=== PATIENT | male | born 2000 | race Caucasian/White ===

== ENCOUNTER 2022-06-12 19:32 | Emergency (ER) | payer OTHER, SELFPAY ==
--- NOTE | ~2022-06-12 | XR_ITS ---
EXAMINATION: 1. Right foot 2. Right ankle. CLINICAL INFORMATION: Fall. Pain. COMPARISON: None. TECHNIQUE: 1. Right foot. 3 views 2. Right ankle. 3 views FINDINGS: 1. Right foot. No fracture. No dislocation. Bone and joint are normal. 2. Right ankle. Soft tissue swelling at lateral malleolus. No fracture. No dislocation. Ankle mortise is congruent. XR/XR ankle RT 2V IMPRESSION: 1. Right foot. Normal right foot. 2. Right ankle. Soft tissue swelling at lateral malleolus. No acute osseous abnormality.
--- NOTE | ~2022-06-12 | XR_ITS ---
EXAMINATION: 1. Right foot 2. Right ankle. CLINICAL INFORMATION: Fall. Pain. COMPARISON: None. TECHNIQUE: 1. Right foot. 3 views 2. Right ankle. 3 views FINDINGS: 1. Right foot. No fracture. No dislocation. Bone and joint are normal. 2. Right ankle. Soft tissue swelling at lateral malleolus. No fracture. No dislocation. Ankle mortise is congruent. XR/XR foot RT min 3V IMPRESSION: 1. Right foot. Normal right foot. 2. Right ankle. Soft tissue swelling at lateral malleolus. No acute osseous abnormality.
--- NOTE | 2022-06-12 19:38 | ED.FALL ---
HPI - Fall General Chief Complaint: Extremity Injury, Lower <FLAVIA Jeff - Last Filed: 06/12/22 20:14> Stated Complaint: R ANKLE PAIN <FLAVIA Jeff - Last Filed: 06/12/22 20:14> Time Seen by Provider: 06/12/22 20:23 <FLAVIA Jeff - Last Filed: 06/12/22 20:14> Source: patient and EMS <Beti Nolan MD - Last Filed: 06/12/22 21:03> Mode of arrival: EMS <Beti Nolan MD - Last Filed: 06/12/22 21:03> Limitations: no limitations <Beti Nolan MD - Last Filed: 06/12/22 21:03> History of Present Illness HPI Narrative: 21-year-old male fell off the ladder about 4 ft high while he was working, patient fell off the ladder twisting his right ankle causing severe pain to the right ankle, patient is sustaining swelling and pain in right ankle, unable to bear weight on right ankle/foot. <Beti Nolan MD - Last Filed: 06/12/22 21:03> Related Data Allergies/Adverse Reactions: Allergies Allergy/AdvReac Type Severity Reaction Status Date / Time No Known Allergies Allergy Verified 06/12/22 19:58 <FLAVIA Jeff - Last Filed: 06/12/22 20:14> Review of Systems Review of Systems: All other systems are reviewed and are negative Constitutional: Reports as per HPI and Reports no additional constitutional complaints Eyes: Reports as per HPI and Reports no additional eye complaints Reports system reviewed and no additional complaints, except as documented Cardiovascular: Reports as per HPI and Reports no additional cardiovascular complaints Respiratory: Reports as per HPI and Reports no additional respiratory complaints Gastrointestinal: Reports as per HPI and Reports no additional gastrointestinal complaints Genitourinary: Reports no additional female genitourinary complaints Musculoskeletal: Reports no additional musculoskeletal complaints Skin/Breast: Reports system reviewed and no additional complaints, except as docu Psychiatric: Reports no additional psychiatric complaints Endocrine: Reports no additional endocrine complaints Hematologic/Lymphatic: Reports no additional hematologic/lymphatic complaints Allergic/Immunologic: Reports no additional allergic/immunologic complaints Reports system reviewed and no additional complaints, except as documented and Reports Abnormal speech present <Beti Nolan MD - Last Filed: 06/12/22 21:03> Physical Exam Vital Signs: Vital Signs: Last Vital Signs Temp 98.2 F 06/12/22 20:05 Pulse 98 06/12/22 20:05 Resp 16 06/12/22 20:05 BP 134/71 06/12/22 20:05 Pulse Ox 98 06/12/22 20:05 O2 Del Method 06/12/22 20:05 BMI result Body Mass Index 34.9 <FLAVIA Jeff - Last Filed: 06/12/22 20:14> Vital Signs: Last Vital Signs Temp 98.2 F 06/12/22 20:05 Pulse 98 06/12/22 20:05 Resp 16 06/12/22 20:05 BP 134/71 06/12/22 20:05 Pulse Ox 98 06/12/22 20:05 O2 Del Method 06/12/22 20:05 BMI result Body Mass Index 34.9 Vital signs have been reviewed as appeared to be correct. Blood pressure normal. Heart rate normal. Respiration rate normal. Temperature normal. Oxygen saturation normal. <Beti Nolan MD - Last Filed: 06/12/22 21:03> Appearance: Alert. Oriented X3. No acute distress. Head: Normal external exam. Normocephalic. Atraumatic. No Cano signs noted. No raccoon eyes noted Eyes: PERRLA. EOMI. Conjunctiva and sclera normal. Eyelids normal. ENT: TM's Normal. Pharynx normal. Uvula midline. Moist mucous membranes. No trismus noted. No drooling noted. No muffled voice noted. Neck: Normal inspection. Neck supple. FROM. No adenopathy. Thyroid Normal. No meningeal signs. No neck mass noted. CVS: Normal heart rate and rhythm. Heart sound normal. No murmurs noted. Pulses normal throughout. Respiratory: No respiratory distress. Painless inspiration. Breath sounds normal. No wheezes/rales/rhonchi noted. Chest nontender. No accessory muscle usage noted or decreased air movement noted. Abdomen: Soft and nontender. Bowel sounds normal in all 4 quadrants. No distention noted. No organomegaly noted. No visible injury noted. Back: No CVA tenderness. Full range of motion noted. Skin: Skin warm and dry. Normal skin color. Normal skin turgor. No rashes/lesions/lacerations noted. Extremities: Right ankle exam: Swelling over lateral malleolus, no deformity, tenderness to palpation, unable to bear weight, full range of motion of the right ankle, neurovascularly intact. Neuro: Oriented X 3. Cranial nerve exam: II-XII are grossly intact No motor deficit. No sensory deficit. Reflexes normal. <Beti Nolan MD - Last Filed: 06/12/22 21:03> Course Course Course Narrative: RME-- 21yo M w/no sig PMHx presenting to the ED c/o R ankle pain s/p falling off 4ft ladder while at work [employer], denies head trauma or LOC +deformity with swelling & diffuse ttp. NV intact XR ordered <FLAVIA Jeff - Last Filed: 06/12/22 20:14> Medical Decision Making Differential Diagnosis Differential Diagnoses: The differential diagnosis associated with the presentation includes (Right ankle fracture, right ankle dislocation, right ankle contusion, right ankle sprain, right foot fracture.) <Beti Nolan MD - Last Filed: 06/12/22 21:03> Independent Interpretation I performed an independent interpretation of an: Plain X-Ray (Right foot/ankle x-ray: Soft tissue swelling of lateral malleolus with no acute fracture or subluxation.) <Beti Nolan MD - Last Filed: 06/12/22 21:03> Radiology Impression Discussion of test interpretation with radiology: I have reviewed the radiologist's reading. <Beti Nolan MD - Last Filed: 06/12/22 21:03> Discharge Plan Discharge Clinical Impression: Ankle sprain and strain <FLAVIA Jeff - Last Filed: 06/12/22 20:14> Patient Disposition: Home, Self-Care <FLAVIA Jeff - Last Filed: 06/12/22 20:14> Instructions: Ankle Sprain (ED) <FLAVIA Jeff - Last Filed: 06/12/22 20:14> Additional Instructions: Apply ice to the right ankle, take ibuprofen 200 mg tablet [id number] every 6 hours if needed for pain. Use the crutches with no bearing weight on right ankle. <FLAVIA Jeff - Last Filed: 06/12/22 20:14> Referrals: Tahir Doll MD [Physician] - <FLAVIA Jeff - Last Filed: 06/12/22 20:14> Stand Alone Forms: Work/School Release <FLAVIA Jeff - Last Filed: 06/12/22 20:14>
[2022-06-12 20:05] VITALS: BP 134/71; PULSE 98; RESP 16; TEMP 36.8; O2SAT 98; BMI 34.9
[2022-06-12] MEDS: Ibuprofen 600 MG TABLET PO (21:03)
--- NOTE | 2022-06-12 21:48 | PC.NURSE ---
ANGEL mirza and this RN placed splint on pt. and this RN provided crutches training. Pt. amublating on crutches with slow, steady gait at d/c.
== END 2022-06-12 21:50 | disposition home or self-care (01) ==
LOC: HO.ED 21:12
PROVIDERS: Emergency Provider Emergency Medicine
DX: S93.401A Sprain of unspecified ligament of right ankle, initial encounter (principal); M79.671 Pain in right foot; W11.XXXA Fall on and from ladder, initial encounter; Y93.9 Activity, unspecified; Y92.9 Unspecified place or not applicable; Y99.0 Civilian activity done for income or pay
CPT/HCPCS: 29515; 73600; 73630; 99283; 99284

== ENCOUNTER → 2022-06-21 10:19 | Outpatient (BNVA) | payer OTHER, SELFPAY | PROVIDERS: Visit Provider Physician Assistant | DX: S90.31XA Contusion of right foot, initial encounter (principal); S97.81XA Crushing injury of right foot, initial encounter; S93.401A Sprain of unspecified ligament of right ankle, initial encounter | CPT/HCPCS: 99202 ==

== ENCOUNTER 2022-07-01 07:24 | Outpatient (REF) | payer OTHER, SELFPAY ==
--- NOTE | ~2022-07-01 | CT_ITS ---
EXAMINATION: CT FOOT WITHOUT CONTRAST, RIGHT CLINICAL INFORMATION: Contusion of right foot. COMPARISON: X-ray of the right ankle and foot May 2022. TECHNIQUE: CT scan of the right foot is performed without contrast with reconstruction imaging performed at the acquisition workstation. This CT examination was performed using dose optimization techniques as appropriate, variously including the following: *Automated exposure control *Adjustment of mA and/or kV according to patient size (this includes techniques or standardized protocols for targeted exams where dose is matched to indication/reason for exam; i.e. extremities or head) *Use of iterative reconstruction technique DLP: 153 mGy-cm FINDINGS: There is a minimally displaced, slightly elevated osteochondral fracture/osteochondral defect involving the lateral dome of the talus. The osteochondral abnormality extends over 13 mm AP, 4 mm transverse, and 3 mm in depth. There is a small fragment, which appears attached or partially detached adjacent to the osseous defect. See coronal oblique image 109 series 10. There is a mild joint effusion. The mortise appears intact. No additional fractures. Mild generalized soft tissue swelling circumferentially about the ankle and visualized foot. 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
== END 2022-07-01 07:25 | disposition home or self-care (01) ==
LOC: HO.CT 07:24
PROVIDERS: Visit Provider Physician Assistant
DX: S90.31XA Contusion of right foot, initial encounter (principal); S97.81XA Crushing injury of right foot, initial encounter; S93.401A Sprain of unspecified ligament of right ankle, initial encounter; X58.XXXA Exposure to other specified factors, initial encounter; Y93.9 Activity, unspecified; Y92.9 Unspecified place or not applicable; Y99.9 Unspecified external cause status
CPT/HCPCS: 73700

== ENCOUNTER → 2022-07-08 14:37 | Outpatient (BNVA) | payer OTHER, SELFPAY | PROVIDERS: Visit Provider Physician Assistant | DX: S97.81XD Crushing injury of right foot, subsequent encounter (principal); S93.401D Sprain of unspecified ligament of right ankle, subsequent encounter; S92.153D Displaced avulsion fracture (chip fracture) of unspecified talus, subsequent encounter for fracture with routine healing | CPT/HCPCS: 99212 ==

== ENCOUNTER 2022-08-01 06:19 | Outpatient (REF) | payer OTHER, SELFPAY ==
--- NOTE | ~2022-08-01 | XR_ITS ---
EXAMINATION: XR ANKLE, RIGHT CLINICAL INFORMATION: Pain in right ankle joints of right foot. COMPARISON: CT foot 07/01/2022. Right ankle 06/12/2022. TECHNIQUE: AP, lateral, and mortise views of the right ankle. FINDINGS: Slightly improved moderate lateral soft tissue swelling. There is a minimally displaced fracture involving the lateral dome of the talus which is unchanged compared to prior CT. No significant osseous bridging at this time. Alignment remains anatomic. XR/XR ankle RT min 3V IMPRESSION: Stable minimally displaced fracture of the lateral talar dome.
== END 2022-08-01 06:20 | disposition home or self-care (01) ==
LOC: HO.HOSX 06:19
PROVIDERS: Visit Provider Physician Assistant
DX: S92.151D Displaced avulsion fracture (chip fracture) of right talus, subsequent encounter for fracture with routine healing (principal); S93.401D Sprain of unspecified ligament of right ankle, subsequent encounter
CPT/HCPCS: 73610

== ENCOUNTER 2022-09-12 06:14 | Outpatient (REF) | payer OTHER, SELFPAY ==
--- NOTE | ~2022-09-12 | XR_ITS ---
EXAMINATION: XR ANKLE, RIGHT CLINICAL INFORMATION: Right ankle pain. COMPARISON: None available. TECHNIQUE: Two views of the right ankle. FINDINGS: The bones and soft tissues appear unremarkable. No fracture appreciated. Alignment is anatomic. Joint spaces are maintained. No joint effusion. XR/XR ankle RT min 3V IMPRESSION: Normal plain film examination of the right ankle.
--- NOTE | ~2022-09-12 | XR_ITS ---
EXAMINATION: XR FOOT, RIGHT CLINICAL INFORMATION: Displaced fracture of the fifth metatarsal bone, right foot. COMPARISON: None available. TECHNIQUE: AP, lateral, and oblique views of the right foot. FINDINGS: The bones and soft tissues appear unremarkable. No fracture appreciated. Alignment is anatomic. Joint spaces are maintained. XR/XR foot RT min 3V IMPRESSION: Normal plain film examination of the right foot.
== END 2022-09-12 06:15 | disposition home or self-care (01) ==
LOC: HO.HOSX 06:14
PROVIDERS: Visit Provider Physician Assistant
DX: S92.351D Displaced fracture of fifth metatarsal bone, right foot, subsequent encounter for fracture with routine healing (principal); S93.401D Sprain of unspecified ligament of right ankle, subsequent encounter
CPT/HCPCS: 73610; 73630